=== PATIENT | female | born 1970 | race Caucasian/White ===

== ENCOUNTER 2018-11-30 09:01 | Outpatient (CLI) | payer OTHER | END 2018-11-30 09:02 | disposition home or self-care (01) | LOC: BICMAMMO 09:01 | PROVIDERS: ATTEND Family Medicine | DX: Z12.31 Encounter for screening mammogram for malignant neoplasm of breast (principal); R92.1 Mammographic calcification found on diagnostic imaging of breast | CPT/HCPCS: 77063; 77067 ==

== ENCOUNTER 2018-12-20 09:33 | Outpatient (CLI) | payer OTHER | END 2018-12-20 09:34 | disposition home or self-care (01) | LOC: BICMAMMO 09:33 | PROVIDERS: ATTEND Family Medicine | DX: R92.1 Mammographic calcification found on diagnostic imaging of breast (principal) ==

== ENCOUNTER → 2018-12-25 | Day surgery (SDC) | payer OTHER ==
--- NOTE | 2018-12-25 10:01 | MMO ---
STEREOTACTIC GUIDED BIOPSY RIGHT BREAST MICROCALCIFICATIONS SURGICAL SPECIMEN MAMMOGRAPHY RIGHT DIAGNOSTIC MAMMOGRAM POST BIOPSY: History: New abnormal microcalcifications right breast. FINDINGS: After explaining the procedure and answering all questions, the microcalcification cluster at the sup erior medial aspect of the right breast was visualized. Sterile technique, buffered local anesthesia, stereotactic guidance, and a superior approach were used to carefully advance a 10 gauge vacuum assi sted biopsy needle into the cluster of microcalcifications. Position was confirmed with stereotactic imaging. A total of 12 vacuum assisted specimens were obtained. Surgical specimen mammography shows microcalcifications in the tissue. Localization clip was placed through the biopsy needle in the biopsy bed. Position confirmed with yuko reotactic imaging. Needle was removed. Some blood did arise from the biopsy site. Pressure was held a nd pressure bandage applied. Post procedure mammographic imaging shows localization clip in good position at the superior slightly medial aspect of the right breast in biopsy bed. Patient tolerated the procedure well and was dismissed in good condition. IMPRESSION: Technically successful stereotactic guided biopsy of right breast microcalcifications. Pathology is p ending. POS: [facility]
== END ==
LOC: MAMMO 07:08
PROVIDERS: ATTEND Family Medicine
PROC: 0HBT3ZX Excision of Right Breast, Percutaneous Approach, Diagnostic (ICD-10-PCS; principal; 2018-12-25)
DX: N60.21 Fibroadenosis of right breast (principal)
CPT/HCPCS: 19081; 76098; 88305; 88341; 88342

== ENCOUNTER 2025-01-01 11:17 | Outpatient (CLI) | payer BC | END 2025-01-01 11:18 | disposition home or self-care (01) | LOC: SCSRAD 11:17 | DX: S99.921A Unspecified injury of right foot, initial encounter (principal) ==